=== PATIENT | female | born 1990 | race Two or more races ===

== ENCOUNTER 2018-11-06 22:07 | Emergency (ER) | payer MEDICAID ==
[2018-11-06] MEDS ORDERED: Ketorolac 30 MG/ML SDV IM ONE (22:26)
--- NOTE | 2018-11-06 22:33 | EDM.PDOC ---
ED HPI GENERAL MEDICAL PROBLEM - General Chief Complaint: Back Pain or Injury Stated Complaint: BAD BACK PAIN AND CANT MOVE ARM Time Seen by Provider: 11/06/18 22:20 Source of Information: Reports: Patient, RN, RN Notes Reviewed History Limitations: Reports: No Limitations - History of Present Illness INITIAL COMMENTS - FREE TEXT/NARRATIVE: Pt to ER with c/o left shoulder/neck pain. She states she has been having a headache today, and muscle pain in the upper left back which she has put heat on. She states she has taken Tylenol and that has helped some. She states she was playing ball with her kids [employer] and threw a ball. This is when she felt a pain in the left shoulder and has had decreased range of motion. She states she had anesthesia last week and has had some muscle tenseness since then. Denies chest pains or SOB, numbness or tingling. 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 [No Known Home Meds] 11/06/18 [History] Past Medical History - Past Health History Medical/Surgical History: Denies Medical/Surgical History Social & Family History - Tobacco Use Smoking Status *Q: Never Smoker Second Hand Smoke Exposure: No - Recreational Drug Use Recreational Drug Use: No ED ROS GENERAL - Review of Systems Review Of Systems: ROS reveals no pertinent complaints other than HPI. ED EXAM, UPPER BACK/NECK PAIN - Physical Exam Exam: See Below Exam Limited By: No Limitations General Appearance: Alert, WD/WN, Mild Distress Eye Exam: Bilateral Eye: EOMI, Normal Inspection Ears Exam: Normal External Exam, Hearing Grossly Normal Nose Exam: Normal Inspection Throat/Mouth Exam: Normal Inspection, Normal Voice, No Airway Compromise Head Exam: Atraumatic, Normocephalic Neck Exam: Non-Tender, Full Range of Motion, Normal Alignment, Normal Inspection Nexus Criteria: No: Posterior, Midline Cervical Tenderness, Evidence of Intoxication, Altered Level of Consciousness, Focal Neurological Deficit, Painful Distraction Injuries Cardiovascular/Respiratory: Regular Rate, Rhythm, No M/R/G, Normal Peripheral Pulses, No JVD, Normal Breath Sounds, No Respiratory Distress GI/Abdominal: Normal Bowel Sounds, Soft, Non-Tender (Female) Exam: Deferred Rectal (Female) Exam: Deferred Back Exam: Normal Inspection, Full Range of Motion Extremities: Normal Inspection, Arm Pain (left upper arm, left shoulder pain, up into the neck and left upper back), Limited Range of Motion (left arm) Neurologic: No Motor/Sensory Deficits, Alert, Normal Mood/Affect, Oriented x 3 Psychiatric: Normal Affect, Normal Mood Skin Exam: Normal Color, Warm/Dry Lymphatic: No Adenopathy Course - Vital Signs Last Recorded V/S: Last Vital Signs Temp 97.5 F 11/06/18 22:10 Pulse 78 11/06/18 22:10 Resp 18 11/06/18 22:10 BP 140/90 11/06/18 22:10 Pulse Ox 100 11/06/18 22:10 - Orders/Labs/Meds Meds: Medications Discontinued Medications Generic Name Dose Route Start Last Admin Trade Name Freq PRN Reason Stop Dose Admin Ketorolac Tromethamine 30 mg 11/06/18 22:26 11/06/18 22:33 Toradol IM 11/06/18 22:27 30 mg ONETIME ONE Administration Orphenadrine Citrate 60 mg 11/06/18 22:30 11/06/18 22:32 Norflex IM 60 mg Q12H JAYCE Administration Departure - Departure Time of Disposition: 22:46 Disposition: Home, Self-Care 01 Condition: Fair Clinical Impression: Muscle spasm - Discharge Information *PRESCRIPTION DRUG MONITORING PROGRAM REVIEWED*: No *COPY OF PRESCRIPTION DRUG MONITORING REPORT IN PATIENT VASQUEZ: No Instructions: Muscle Cramps and Spasms, [id number], Muscle Strain, Easy-to- Read, Heat Therapy, [id number] Forms: ED Department Discharge Additional Instructions: Rx: Norflex May use Ibuprofen as directed for pain/headache May use heat as tolerated Follow up with your primary care facility if no improvement
== END 2018-11-06 22:52 | disposition home or self-care (01) ==
LOC: DL.ED 22:07
DX: M62.830 Muscle spasm of back (principal)
CPT/HCPCS: 96372; 99283; J1885; J2360

== ENCOUNTER 2020-02-16 01:17 | Emergency (ER) | payer MEDICAID ==
[2020-02-16 02:52] LABS: ANION GAP 12.1 mEq/L (7-13); CHLORIDE,CL 101 mmol/L (98-107); SODIUM,NA 136 mmol/L (136-145)
--- NOTE | 2020-02-16 03:31 | EDM.PDOC ---
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 Knwn . No OB visit yet. Prior pregnancies in [place] without complications. no urinary symptoms. Pain present now in right upper buttock without radiation. no RLQ pain at this time. Recent constipation but feel now resolved. Right Lower Abdomen Pain Score (Numeric/FACES): 7 - Related Data Allergies Allergy/AdvReac Type Severity Reaction Status Date / Time No Known Allergies Allergy Verified 11/06/18 22:13 Home Meds: Home Meds . [No Known Home Meds] 11/06/18 [History] Past Medical History - Past Health History Medical/Surgical History: Denies Medical/Surgical History Social & Family History - Family History Family Medical History: Noncontributory - Tobacco Use Smoking Status *Q: Never Smoker Second Hand Smoke Exposure: No - Caffeine Use Caffeine Use: Reports: None - Recreational Drug Use Recreational Drug Use: No ED ROS GENERAL - Review of Systems Review Of Systems: Comprehensive ROS is negative, except as noted in HPI. ED EXAM - Physical Exam Exam: See Below Exam Limited By: No Limitations General Appearance: Alert, No Apparent Distress Eye Exam: Bilateral Eye: EOMI Ears: Normal External Exam, Hearing Grossly Normal Nose: Normal Inspection Throat/Mouth: Normal Inspection Head: Atraumatic, Normocephalic Neck: Normal Inspection Respiratory/Chest: No Respiratory Distress, Lungs Clear, Normal Breath Sounds Cardiovascular: Normal Peripheral Pulses, Regular Rate, Rhythm, No Edema GI/Abdominal Exam: Normal Bowel Sounds, Soft, Non-Tender Heart Tones: Present Back Exam: Normal Inspection, Other (mild DI right , discomfort with palpation) Extremities: Normal Range of Motion. No: Pedal Edema Neurological: Alert, Oriented Psychiatric: Normal Affect, Normal Mood Skin Exam: Warm, Dry, Intact, Normal Color Course - Vital Signs Last Recorded V/S: Last Vital Signs Temp 96.9 F 02/16/20 04:38 Pulse 69 02/16/20 04:38 Resp 16 02/16/20 04:38 BP 112/72 02/16/20 04:38 Pulse Ox 99 02/16/20 04:38 - Orders/Labs/Meds Labs: Laboratory Tests 02/16/20 02/16/20 02/16/20 Range/Units 02:25 02:25 02:25 WBC 12.0 H (5.0-10.0) 10^3/uL RBC 5.05 (4.2-5.4) 10^6/uL Hgb 15.7 (12.0-16.0) g/dL Hct 44.3 (37.0-47.0) % MCV 87.7 (80-100) fL MCH 31.1 (27.0-34.0) pg MCHC 35.4 H (33.0-35.0) g/dL Plt Count 280 (150-450) 10^3/uL Neut % (Auto) 73.5 (42.2-75.2) % Lymph % (Auto) 16.2 L (20.5-50.1) % [place] % (Auto) 8.5 H (2-8) % Eos % (Auto) 1.6 (1.0-3.0) % Baso % (Auto) 0.2 (0.0-1.0) % Sodium 136 (136-145) mmol/L Potassium 4.1 (3.5-5.1) mmol/L Chloride 101 (98-107) mmol/L Carbon Dioxide 27 (21-32) mmol/L Anion Gap 12.1 (7-13) mEq/L BUN 7 (7-18) mg/dL Creatinine 0.70 (0.55-1.02) mg/dL Est Cr Clr Drug Dosing 88.68 mL/min Estimated GFR (MDRD) > 60 BUN/Creatinine Ratio 10.0 (No establ ref range) Glucose 86 (74-99) mg/dL Calcium 9.4 (8.5-10.1) mg/dL Total Bilirubin 0.5 (0.2-1.0) mg/dL AST 23 (15-37) U/L ALT 55 (14-59) U/L Alkaline Phosphatase 82 (46-116) U/L Total Protein 8.1 (6.4-8.2) g/dL Albumin 3.6 (3.4-5.0) g/dL Globulin 4.5 Albumin/Globulin Ratio 0.8 HCG, Quant [id number] H (0-6) mIU/mL Departure - Departure Time of Disposition: 05:17 Disposition: Home, Self-Care 01 Condition: Good Clinical Impression: First trimester Low back pain Qualifiers: Chronicity: acute Back pain laterality: right Sciatica presence: with sciatica Sciatica laterality: sciatica of right side Qualified Code(s): M54.41 - Lumbago with sciatica, right side - Discharge Information *PRESCRIPTION DRUG MONITORING PROGRAM REVIEWED*: No *COPY OF PRESCRIPTION DRUG MONITORING REPORT IN PATIENT VASQUEZ: No Instructions: First Trimester of , [id number] Forms: ED Department Discharge Additional Instructions: increase fluids schedule OB visit light activity, advance as tolerated. follow up if fever or increased RLQ pain Sepsis Event Note (ED) - Evaluation Sepsis Screening Result: No Definite Risk
--- NOTE | 2020-02-16 05:26 | US ---
PROCEDURE INFORMATION: Exam: US First Trimester, Transabdominal Exam date and time: 02/16/2020 4:16 AM Age: 29 years old Clinical indication: complicated by abdominal or pelvic pain; Right lower quadrant; First trimester; Gestational age or lmp: 8 wks, 4 days; ; Additional info: Rlq, low back pain TECHNIQUE: Imaging protocol: Real-time transabdominal obstetrical ultrasound of the maternal pelvis and a first trimester , less than 14 weeks 0 days, with image documentation. COMPARISON: No relevant prior studies available. FINDINGS: INTRAUTERINE GESTATION: Single live intrauterine gestation. POLE: Present. YOLK SAC: Present. HEART RATE: 170 beats per minute. CRL: measures 1.94 cm , 8 weeks 4 days. DOT (AUA): 09/23/2020 PLACENTA/AMNIONIC FLUID: Cannot be adequately evaluated due to the early gestational age. UTERUS: Unremarkable. No subchorionic hematoma is noted. RIGHT OVARY: RIGHT ovary measures 2.9 x 2.3 x 2.4 cm. Normal blood flow. LEFT OVARY: LEFT ovary measures 3.3 x 2.1 x 2.3 cm. Normal blood flow. FREE FLUID: No free fluid within the pelvis. IMPRESSION: First trimester intrauterine with estimated gestational age 8 weeks 4 days.
== END 2020-02-16 05:31 | disposition home or self-care (01) ==
LOC: DL.ED 01:17
DX: O99.89 Other specified diseases and conditions complicating pregnancy, childbirth and the puerperium (principal); M54.41 Lumbago with sciatica, right side; Z3A.08 8 weeks gestation of pregnancy
CPT/HCPCS: 36415; 76815; 80053; 84702; 85025; 99284-25

== ENCOUNTER 2020-09-15 11:02 | Inpatient (IN) | payer OTHER, MEDICAID ==
[2020-09-15] MEDS ORDERED: Tranexamic Acid 1,000 MG in Sodium Chloride 0.9% 100 ML IV PRN ×2 (14:53→18:01)
[2020-09-15] MEDS ORDERED: Sodium Chloride 0.9% 10 ML Syringe FLUSH PRN (14:53)
[2020-09-15] MEDS ORDERED: Oxytocin/Normal Saline 30 UNIT/500 ML BAG IV SCH (15:00)
[2020-09-15] MEDS ORDERED: Lactated Ringers 1,000 ML IV SCH ×2 (15:00→18:15)
[2020-09-15] MEDS ORDERED: ceFAZolin 2 GM in Premix Bag 1 BAG IV ONE (15:00)
[2020-09-15] MEDS ORDERED: Citric Acid/Sodium Citrate Solution 30 ML Cup PO ONE (15:00)
[2020-09-15] MEDS: Lactated Ringers 1,000 ML IV SCH ×3 (15:00→19:41)
--- NOTE | 2020-09-15 15:02 | PCM.LDHP ---
L&D History of Present Illness - General Date of Service: 09/15/20 Admit Problem/Dx: Patient Status Order with Admit Dx/Problem 09/15/20 14:53 Patient Status [ADT] Routine Admission Diagnosis/Problem Admission Diagnosis/Problem Term - History of Present Illness Introduction:: Patient is a at 38w6d who presented today for right flank pain and contractions. States the pain started this morning. Pain is described as sharp. She called the clinic and was instructed to leave a urine at the clinic and report to the hospital for an NST. NST has been reassuring and UA contaminated with epithelials and positive for bacteria and WBCs. She has been drinking plenty of water. Denies dysuria, frequency, urgency, hematuria. Her baby has been active. She has a history of prior with her last due to intolerance. She has been doctoring with Dr. Holm in [place] because she desires a . However, she has not been able to get to [place] for her last 2 appointments with him due to car trouble. Her car is still in the shop and she has no way to get to [place]. They have had no success with arranging a ride down there. has been uncomplicated otherwise. She was on aspirin for most of her but uncertain why as she has no history of pre eclampsia. 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: Musculoskeletal History: Reports: None Neurological History: Reports: None Dermatologic History: Reports: None - Past Surgical History Female Surgical History: Reports: Section, D&C Other Female Surgeries/Procedures: Currett of cervix with scope Social & Family History - Family History Family Medical History: No Pertinent Family History Cardiac: Reports: Pacemaker Other Cardiac Family History: maternal grandmother Endocrine/Metabolic: Reports: Diabetes, type II Other Endocrine/Metabolic Family History: Maternal grandmother - Tobacco Use Tobacco Use Status *Q: Never Tobacco User - Caffeine Use Caffeine Use: Reports: None - Living Situation & Occupation Living situation: Reports: Occupation: Employed ( to [employer]. Living in [place], 3 other children at home (2 girls, 1 boy). Working at [employer]. smokes outside.) H&P Review of Systems - Review of Systems: Review Of Systems: See Below General: Denies: Fever, Chills, Weakness HEENT: Denies: Headaches, Vertigo, Visual Changes Pulmonary: Denies: Shortness of Breath Cardiovascular: Denies: Edema, Lightheadedness Gastrointestinal: Denies: Diarrhea, Nausea, Vomiting Genitourinary: Reports: Flank Pain. Denies: Dysuria, Frequency, Burning, Urgency, Hematuria, Discharge Neurological: Denies: Dizziness, Headache, Numbness L&D Exam - Exam Exam: See Below - Vital Signs Vital Signs: Last Vital Signs Temp 98.1 F 09/15/20 11:30 Pulse 87 09/15/20 11:13 Resp 16 09/15/20 11:13 BP 128/78 09/15/20 11:30 Pulse Ox - OB Specific Contraction Duration (sec): 90-120 Contraction Frequency (min): 6-9 - Exam General: Alert, Oriented HEENT: Conjunctiva Clear Neck: Supple, Trachea Midline Lungs: Clear to Auscultation, Normal Respiratory Effort Cardiovascular: Regular Rate, Regular Rhythm, Normal S1, Normal S2 GI/Abdominal Exam: Soft, Non-Tender, No Distention Back Exam: Normal Inspection. No: CVA Tenderness (L), CVA Tenderness (R) Extremities: Non-Tender, No Pedal Edema Skin: Warm, Dry Neurological: Reflexes Equal Bilateral - Problem List (1) History of SNOMED Code(s): 437689802 ICD Code: Z98.891 - HISTORY OF UTERINE SCAR FROM PREVIOUS SURGERY Status: Acute Current Visit: Yes (2) Normal in third trimester SNOMED Code(s): 85407042, 78439369 ICD Code: Z34.93 - ENCNTR FOR SUPRVSN OF NORMAL PREG, UNSP, THIRD TRIMESTER Status: Acute Current Visit: Yes (3) Right flank pain SNOMED Code(s): 146138859 ICD Code: R10.9 - UNSPECIFIED ABDOMINAL PAIN Status: Acute Current Visit: Yes (4) UTI in SNOMED Code(s): 287432342 ICD Code: O23.40 - UNSP INFECTION OF URINARY TRACT IN , UNSP TRIMESTER Status: Acute Current Visit: Yes (5) Positive GBS test SNOMED Code(s): 242651815, 591919365 ICD Code: B95.1 - STREPTOCOCCUS, GROUP B, CAUSING DISEASES CLASSD ELSWHR Status: Acute Current Visit: Yes Problem List Initiated/Reviewed/Updated: Yes Orders Last 24hrs: Active Orders 24 hr Category Date Time Status Patient Status [ADT] Routine ADT 09/15/20 14:53 Ordered Non Stress Test [RC] PER UNIT ROUTINE Care 09/15/20 14:53 Ordered NST [ Non Stress Test] [RC] PER UNIT ROUTINE Care 09/15/20 11:00 Active Notify Provider Vital Signs OB [RC] ASDIRECTED Care 09/15/20 14:53 Ordered Peripheral IV Care [RC] . DIRECTED Care 09/15/20 14:53 Ordered Procedure Site Prep Instruct [RC] ASDIRECTED Care 09/15/20 14:53 Ordered RT Incentive Spirometry [RC] ASDIRECTED Care 09/15/20 14:53 Ordered Vital Signs [RC] PER UNIT ROUTINE Care 09/15/20 14:53 Ordered Nothing Per Oral Diet [DIET] Diet 09/15/20 Breakfast Ordered Nothing Per Oral Diet [DIET] Diet 09/15/20 Dinner Ordered Nothing Per Oral Diet [DIET] Diet 09/15/20 Lunch Ordered CBC WITH AUTO DIFF [HEME] Stat Lab 09/15/20 14:53 Ordered CORONAVIRUS COVID-19 CHANDANA [MOLEC] Stat Lab 09/15/20 14:53 Ordered TYPE AND SCREEN [BBK] Stat Lab 09/15/20 14:53 Ordered Citric Acid/Sodium Citrate [Bicitra Solution] Med 09/15/20 14:53 Once 30 ml PO ONETIME ONE Lactated Ringers @ 125 MLS/HR(1000ml) Med 09/15/20 15:00 Ordered Lactated Ringers [Ringers, Lactated] 1,000 ml IV ASDIRECTED Lactated Ringers [Ringers, Lactated] 1,000 ml Med 09/15/20 15:00 Ordered IV .BOLUS Oxytocin 30 Units in NS @ 2 MUNITS/MIN(500ml) Med 09/15/20 15:00 Ordered Oxytocin/Normal Saline [Pitocin in NS 30 UNIT/500 ML] 30 unit in 500 ml IV TITRATE Sodium Chloride 0.9% [Saline Flush] Med 09/15/20 14:53 Ordered 10 ml FLUSH ASDIRECTED PRN Tranexamic Acid [Cyklokapron] 1,000 mg Med 09/15/20 14:53 Ordered Sodium Chloride 0.9% [Normal Saline] 100 ml IV ONETIME ceFAZolin [Ancef 2 GM/50 ML] 2 gm Med 09/15/20 14:53 Ordered Premix Bag 1 bag IV ONETIME Peripheral IV Insertion Adult [OM.PC] Routine Oth 09/15/20 14:53 Ordered Schedule Procedure [COMM] Per Unit Routine Oth 09/15/20 14:53 Ordered Resuscitation Status Routine Resus Stat 09/15/20 14:53 Ordered Medication Orders Citric Acid/Sodium Citrate (Bicitra Solution) 30 ml PO ONETIME ONE Stop: 09/15/20 14:54 Lactated Ringer's (Ringers, Lactated) 1,000 mls @ 125 mls/hr IV ASDIRECTED JAYCE Lactated Ringer's (Ringers, Lactated) 1,000 mls @ 500 mls/hr IV .BOLUS JAYCE Tranexamic Acid 1,000 mg/ (Sodium Chloride) 110 mls @ 660 mls/hr IV ONETIME PRN PRN Reason: Bleeding Oxytocin/Sodium Chloride (Pitocin In Ns 30 Unit/500 Ml) 30 unit in 500 mls @ 2 mls/hr IV TITRATE JAYCE; Protocol Cefazolin Sodium/Dextrose 2 gm (/ Premix) 50 mls @ 100 mls/hr IV ONETIME ONE Stop: 09/15/20 15:22 Sodium Chloride (Saline Flush) 10 ml FLUSH ASDIRECTED PRN PRN Reason: Keep Vein Open Assessment/Plan Comment:: Patient monitored for several hours. Her contractions have increased in frequency and intensity. Her cervix has changed from 1/25/-3 to 2.5 and thin/stretchy. She was advised that we could still get her to [place] to attempt vaginal delivery but patient would have no way of getting back to town. They have no vehicle to drive down to [place] and no one willing to drive for them. She would like to proceed with c- section. Will admit to L & D. Dr. Arguello was consulted for . Orders placed and will go forward with as soon as able. Nell Elise MD
[2020-09-15] MEDS ORDERED: Oxytocin/Normal Saline 60 UNIT/1,000 ML BAG ONE (15:11)
[2020-09-15] MEDS ORDERED: Carboprost Tromethamine 250 MCG/1 ML Amp IM PRN (18:01)
[2020-09-15] MEDS ORDERED: Acetaminophen 325 MG Tab PO PRN (18:01)
[2020-09-15] MEDS ORDERED: Misoprostol 400 MCG (4 X 100 MCG TAB) RECTAL PRN (18:01)
[2020-09-15] MEDS ORDERED: Naloxone 2 MG/2 ML Syringe IVPUSH PRN (18:01)
[2020-09-15] MEDS ORDERED: Ondansetron 4 MG/2 ML SDV IVPUSH PRN (18:01)
[2020-09-15] MEDS ORDERED: diphenhydrAMINE 50 MG/ML SDV IVPUSH PRN (18:01)
[2020-09-15] MEDS ORDERED: Methylergonovine 0.2 MG/1 ML Amp IM PRN (18:01)
[2020-09-15] MEDS ORDERED: Acetaminophen/oxyCODONE 325-5 MG Tab PO PRN (18:01)
[2020-09-15] MEDS ORDERED: ePHEDrine 50 MG/ML SDV IVPUSH PRN (18:01)
[2020-09-15] MEDS ORDERED: Promethazine 25 MG/ML SDV IM ONE (20:48)
--- NOTE | 2020-09-15 20:52 | OR ---
DATE: 09/15/2020 PREPROCEDURE DIAGNOSES: 1. 38-6/7th weeks' intrauterine . 2. 4, para 3-0-0-3. 3. History of section x1 because of distress. 4. Patient requesting repeat low transverse section due to active labor and inability to travel to [place] and get home from [place] after her planned vaginal after . POSTOPERATIVE DIAGNOSES: 1. 38-6/7th weeks' intrauterine . 2. 4, para 3-0-0-3. 3. History of section x1 because of distress. 4. Patient requesting repeat low transverse section due to active labor and inability to travel to [place] and get home from [place] for her planned vaginal after . 5. Extension of the hysterotomy site to the broad ligament on the right plus delivery of viable female infant. scores of 8 and 9. STEREOPTIC PROJECTION TOPOGRAPHER: Nell Grover MD. SECOND AMALGAMATOR: Francia Rich MS-III ANESTHESIA: Spinal. CONSENT: Discussed with the patient indications, risks, benefits, and alternatives of repeat low transverse section under spinal anesthesia, potential for injury to internal organs and adjacent structures including but not limited to large blood vessels, nerves, veins, bladder, fallopian tubes, ovaries, uterus, and intestines; potential injury to the baby; potential for other complications requiring Intensive Care nursery transfer; complications for mother that would require transfer to a higher level of care; and all of her questions were answered. She signed appropriate consent forms and those can be found in the chart. BRIEF HISTORY: This is a 30-year-old female with the above-listed history, who presented to the hospital earlier today with right-sided back pain and not much in the way of urinary symptoms. However, concern for a urinary tract infection was investigated and found to be negative. She went on from a closed cervix to 2.5 cm dilated with regular contractions, increasing in force and frequency. Her original delivery plan was to go to [place] for a trial of labor after , especially with a history of 2 prior successful vaginal deliveries. She was advised that this could be arranged by ambulance. However, she did not want to go because there was concern of not being able to get her down or them having difficulties getting back from [place] after delivery upon discharge due to having some trouble with her car. monitoring strip had been category 1, and the patient was doing well. DETAILS OF PROCEDURE: The patient was brought to the operating suite and spinal anesthesia was obtained. She was then laid in dorsal supine position with leftward tilt and Mariee indwelling catheter was placed. The abdomen was prepped and site of prior skin scar was marked, and sterile drapes applied in the usual fashion. A skin incision was made at 1655 with scalpel and carried down through the subcutaneous tissue into the fascia using cautery, which was incised in the midline and carried out bilaterally with cautery. The superior fascial edge was grasped with Kochers, tented up, and rectus muscles dissected off bluntly. The inferior fascial edge then grasped with Kochers, tented up, and dissected off bluntly as well. The peritoneal cavity was elevated and gently incised with scalpel, and then further peritoneal opening created using blunt finger dissection. The Hong retractor was then placed and a bladder flap created with Metzenbaum and smooth pickups. The hysterotomy incision was made with scalpel in the midline and only about 3 mm in diameter, extended bilaterally using Chilel method, trying to direct upward at the lateral edges and appeared appropriate. The baby was very low in the pelvis and had to be brought up out of the pelvic bowl to the hysterotomy site for delivery. Along with elevation of the head and fundal pressure, the was delivered at 1702, strong vigorous cry. The baby was dried, stimulated, and bulb suction performed. Three-vessel umbilical cord was doubly clamped and cut; and baby taken to the warmer for further evaluation. Uterine site was showing some large bleeders on the right side, so those were clamped with Penningtons. Placenta was then delivered by gentle cord traction and concomitant uterine massage, inspected, and intact. Uterus was cleared of all clots and debris with 2 dry lap sponges, and all trailing membranes removed with dry lap sponge and ring forceps. Hysterotomy site was then closed with 0 Vicryl in a running lock fashion. When I did get to the right side, I did notice that it went over into the broad ligament, and this was closed all the way to the apex, palpating posteriorly to make sure we did not suture too deeply. Hysterotomy site was inspected and was hemostatic. The Hong retractor was removed and uterus exteriorized. Posterior aspect was normal without any trauma. The uterus was placed back in the abdominal cavity. Rectus muscles were reapproximated in the midline with 0 Vicryl, and then fascial layer brought together with 0 looped PDS in the usual running fashion. Subcutaneous tissue was then irrigated of all clots and debris, and the skin closed with go and time was 1735, and there were no complications. After the removal of the Hong O retractor, hysterotomy site was reinspected and remained hemostatic. ESTIMATED BLOOD LOSS: 800 mL. URINE OUTPUT: 250 mL, clear. ESTIMATED BLOOD LOSS: 1600 mL of lactated Ringer's. FLUIDS: 200 mL of Pitocin. COMPLICATIONS: None. DISPOSITION: Baby taken to the nursery. Mother will be taken to the PACU and will be reunited soon. [facility] /[id number] MTDD
[2020-09-15] MEDS: Ketorolac 30 MG/ML SDV IVPUSH SCH (23:39)
[2020-09-16] MEDS: Ketorolac 30 MG/ML SDV IVPUSH SCH ×2 (05:31→11:13)
[2020-09-16] MEDS: Simethicone 80 MG Tab.Chew PO SCH ×5 (05:35→21:06)
--- NOTE | 2020-09-16 06:47 | PCM.PN ---
<Francia Rich D - Last Filed: 09/16/20 07:04> - General Info Date of Service: 09/16/20 Admission Dx/Problem (Free Text): Labor and delivery, status post Caesarean section Subjective Update: Denise is a 30-year-old female status post-Caesarean section yesterday. This morning she is doing well overall. Some fatigue and abdominal soreness, as expected. Sleeping well. Pain is well controlled. Tolerating general diet. IVF NS 125 mL/hr. Denies incisional pain, chest pain, shortness of breath, nausea, vomiting, weakness, any new symptoms. Mariee in. Last bowel movement yesterday morning. Has not ambulated. SCD's in place. Is baby. Functional Status: Reports: Pain Controlled, Tolerating Diet. Denies: Ambulating, New Symptoms - Review of Systems General: Reports: Fatigue. Denies: Fever, Weakness, Chills HEENT: Denies: Headaches, Visual Changes Pulmonary: Denies: Shortness of Breath, Cough Cardiovascular: Denies: Chest Pain, Palpitations, Lightheadedness Gastrointestinal: Denies: Abdominal Pain, Constipation, Decreased Appetite, Diarrhea, Nausea, Vomiting Genitourinary: Denies: Pain Musculoskeletal: Denies: Joint Pain, Joint Swelling Skin: Denies: Mottled, Pallor, Pruritis, Rash Neurological: Denies: Confusion, Dizziness, Headache, Numbness, Tingling - Patient Data Vitals - Most Recent: Last Vital Signs Temp 96.8 F L 09/16/20 04:00 Pulse 67 09/16/20 04:00 Resp 16 09/16/20 04:00 BP 101/52 L 09/16/20 04:00 Pulse Ox 99 09/15/20 19:00 Weight - Most Recent: 174 lb I&O - Last 24 Hours: Intake & Output 09/15/20 09/15/20 09/16/20 14:59 22:59 06:59 Intake Total 1400 480 908 Output Total 724 450 Balance 1400 -413 458 Lab Results Last 24 Hours: Laboratory Results - last 24 hr 09/15/20 09/15/20 09/15/20 Range/Units 15:11 15:11 15:18 WBC 8.4 (5.0-10.0) 10^3/uL RBC 4.96 (4.2-5.4) 10^6/uL Hgb 14.8 (12.0-16.0) g/dL Hct 43.5 (37.0-47.0) % MCV 87.7 (80-100) fL MCH 29.8 (27.0-34.0) pg MCHC 34.0 (33.0-35.0) g/dL Plt Count 196 D (150-450) 10^3/uL Neut % (Auto) 73.7 (42.2-75.2) % Lymph % (Auto) 16.1 L (20.5-50.1) % Hughes % (Auto) 9.0 H (2-8) % Eos % (Auto) 1.1 (1.0-3.0) % Baso % (Auto) 0.1 (0.0-1.0) % SARS-CoV-2 RNA (CHANDANA) Negative (NEGATIVE) Blood Type A POSITIVE Gel Antibody Screen Negative 09/16/20 Range/Units 06:03 WBC 11.8 H (5.0-10.0) 10^3/uL RBC 3.81 L (4.2-5.4) 10^6/uL Hgb 11.5 L D (12.0-16.0) g/dL Hct 33.5 L (37.0-47.0) % MCV 87.9 (80-100) fL MCH 30.2 (27.0-34.0) pg MCHC 34.3 (33.0-35.0) g/dL Plt Count 215 (150-450) 10^3/uL Neut % (Auto) (42.2-75.2) % Lymph % (Auto) (20.5-50.1) % Hughes % (Auto) (2-8) % Eos % (Auto) (1.0-3.0) % Baso % (Auto) (0.0-1.0) % SARS-CoV-2 RNA (CHANDANA) (NEGATIVE) Blood Type Gel Antibody Screen Med Orders - Current: Current Medications Acetaminophen (Tylenol) 650 mg PO Q6H PRN PRN Reason: Mild Pain (1-3) or Fever Carboprost Tromethamine (Hemabate Ds) 250 mcg IM ONETIME PRN PRN Reason: Bleeding Diphenhydramine HCl (Benadryl) 25 mg IVPUSH Q6H PRN PRN Reason: Itching or Nausea Docusate Sodium (Colace) 100 mg PO Q12H PRN PRN Reason: Constipation Ephedrine Sulfate (Ephedrine Sulfate) 5 mg IVPUSH SEECOMMENT PRN PRN Reason: Other Oxytocin/Sodium Chloride (Pitocin In Ns 30 Unit/500 Ml) 30 unit in 500 mls @ 2 mls/hr IV TITRATE [facility]; Protocol Last Titration: 09/15/20 19:40 Dose: 0 munits/min, 0 mls/hr Documented by: Lactated Ringer's (Ringers, Lactated) 1,000 mls @ 125 mls/hr IV ASDIRECTED [facility] Last Admin: 09/16/20 04:05 Dose: 125 mls/hr Documented by: Tranexamic Acid 1,000 mg/ (Sodium Chloride) 110 mls @ 660 mls/hr IV ONETIME PRN PRN Reason: Bleeding Ibuprofen (Motrin) 800 mg PO Q8H PRN PRN Reason: Cramping Ketorolac Tromethamine (Toradol) 15 mg IVPUSH Q6H [facility] Stop: 09/16/20 11:01 Last Admin: 09/16/20 05:31 Dose: 15 mg Documented by: Methylergonovine Maleate (Methergine) 0.2 mg IM ONETIME PRN PRN Reason: Excessive Vaginal Bleeding Misoprostol (Cytotec) 800 mcg RECTAL ASDIRECTED PRN PRN Reason: Excessive bleeding Naloxone HCl (Narcan) 0.1 mg IVPUSH SEECOMMENT PRN PRN Reason: Respiratory Depression Ondansetron HCl (Zofran) 4 mg IVPUSH Q4H PRN PRN Reason: Nausea/Vomiting Last Admin: 09/15/20 20:23 Dose: 4 mg Documented by: Oxycodone/Acetaminophen (Percocet 325-5 Mg) 1 tab PO Q4H PRN PRN Reason: Pain (moderate 4-6) Oxycodone/Acetaminophen (Percocet 325-5 Mg) 2 tab PO Q4H PRN PRN Reason: Pain (moderate 4-6) Prenat Multivit/[place]/Iron/Folic Ac ( Plus Iron) 1 each PO DAILY [facility] Simethicone (Simethicone) 160 mg PO QID [facility] Last Admin: 09/16/20 05:35 Dose: Not Given Documented by: Discontinued Medications Citric Acid/Sodium Citrate (Bicitra Solution) 30 ml PO ONETIME ONE Stop: 09/15/20 15:01 Last Admin: 09/15/20 16:07 Dose: 30 ml Documented by: Lactated Ringer's (Ringers, Lactated) 1,000 mls @ 125 mls/hr IV ASDIRECTED [facility] Last Admin: 09/15/20 19:41 Dose: 125 mls/hr Documented by: Lactated Ringer's (Ringers, Lactated) 1,000 mls @ 500 mls/hr IV .BOLUS [facility] Last Admin: 09/15/20 16:00 Dose: 999 mls/hr Documented by: Tranexamic Acid 1,000 mg/ (Sodium Chloride) 110 mls @ 660 mls/hr IV ONETIME PRN PRN Reason: Bleeding Cefazolin Sodium/Dextrose 2 gm (/ Premix) 50 mls @ 100 mls/hr IV ONETIME ONE Stop: 09/15/20 15:29 Last Admin: 09/15/20 16:34 Dose: 100 mls/hr Documented by: Cefazolin Sodium/Dextrose (Ancef 2 Gm/50 Ml) Confirm Administered Dose 50 mls @ as directed .ROUTE .STK-MED ONE Stop: 09/15/20 15:12 Oxytocin/Sodium Chloride (Pitocin In Ns 30 Unit/500 Ml) Confirm Administered Dose 60 unit in 1,000 mls @ as directed .ROUTE .STK-MED ONE Stop: 09/15/20 15:12 Promethazine HCl (Phenergan) 12.5 mg IM ONETIME ONE Stop: 09/15/20 20:49 Last Admin: 09/15/20 21:09 Dose: 12.5 mg Documented by: Sodium Chloride (Saline Flush) 10 ml FLUSH ASDIRECTED PRN PRN Reason: Keep Vein Open - Exam Quality Assessment: Urine Catheter, DVT Prophylaxis General: Alert, Oriented, No Acute Distress HEENT: EOMI, Mucous Membr. Moist/[place]. No: Scleral Icterus Neck: Supple, Trachea Midline Lungs: Clear to Auscultation, Normal Respiratory Effort Cardiovascular: Regular Rate, Regular Rhythm GI/Abdominal Exam: Normal Bowel Sounds, Soft, Non-Tender, No Organomegaly, No Mass (Female) Exam: Deferred Extremities: Normal Inspection, Normal Range of Motion, Non-Tender, No Pedal Edema, Normal Capillary Refill. No: Joint Swelling Skin: Warm, Dry, Intact Wound/Incisions: Dressing Dry and Intact, No Drainage. No: Erythema Neurological: No New Focal Deficit, Normal Speech, Normal Tone Psy/Mental Status: Alert, Normal Affect, Normal Mood Sepsis Event Note - Evaluation Sepsis Screening Result: No Definite Risk - Focused Exam Vital Signs: Vital Signs Temp Pulse Pulse Resp BP Pulse Ox Pulse Ox 09/16/20 04:00 96.8 F L 67 16 101/52 L 09/15/20 23:40 96.7 F L 68 16 121/64 09/15/20 20:15 65 16 124/67 09/15/20 20:00 62 16 129/71 09/15/20 19:30 63 16 126/69 09/15/20 19:15 96.8 F L 65 16 122/72 09/15/20 19:00 70 16 120/77 99 09/15/20 18:45 67 16 122/71 98 - Problem List Review Problem List Initiated/Reviewed/Updated: Yes - Assessment Assessment:: Patient is a 30-year-old now who is doing well. Progressing as expected. - Plan Plan:: Continue general diet, as tolerated. Will consider removing Mariee, d/c IVF today to encourage ambulation. Continue breast feeding, senior product consultant, as needed. Will complete wound check, dressing change. <Nell Elise - Last Filed: 09/16/20 08:12> - Patient Data Vitals - Most Recent: Last Vital Signs Temp 96.8 F L 09/16/20 04:00 Pulse 67 09/16/20 04:00 Resp 16 09/16/20 04:00 BP 101/52 L 09/16/20 04:00 Pulse Ox 99 09/15/20 19:00 I&O - Last 24 Hours: Intake & Output 09/15/20 09/16/20 09/16/20 22:59 06:59 14:59 Intake Total 480 908 Output Total 725 450 Balance -245 458 Lab Results Last 24 Hours: Laboratory Results - last 24 hr 09/15/20 09/15/20 09/15/20 Range/Units 15:11 15:11 15:18 WBC 8.4 (5.0-10.0) 10^3/uL RBC 4.96 (4.2-5.4) 10^6/uL Hgb 14.8 (12.0-16.0) g/dL Hct 43.5 (37.0-47.0) % MCV 87.7 (80-100) fL MCH 29.8 (27.0-34.0) pg MCHC 34.0 (33.0-35.0) g/dL Plt Count 196 D (150-450) 10^3/uL Neut % (Auto) 73.7 (42.2-75.2) % Lymph % (Auto) 16.1 L (20.5-50.1) % Hughes % (Auto) 9.0 H (2-8) % Eos % (Auto) 1.1 (1.0-3.0) % Baso % (Auto) 0.1 (0.0-1.0) % SARS-CoV-2 RNA (CHANDANA) Negative (NEGATIVE) Blood Type A POSITIVE Gel Antibody Screen Negative 09/16/20 Range/Units 06:03 WBC 11.8 H (5.0-10.0) 10^3/uL RBC 3.81 L (4.2-5.4) 10^6/uL Hgb 11.5 L D (12.0-16.0) g/dL Hct 33.5 L (37.0-47.0) % MCV 87.9 (80-100) fL MCH 30.2 (27.0-34.0) pg MCHC 34.3 (33.0-35.0) g/dL Plt Count 215 (150-450) 10^3/uL Neut % (Auto) (42.2-75.2) % Lymph % (Auto) (20.5-50.1) % Hughes % (Auto) (2-8) % Eos % (Auto) (1.0-3.0) % Baso % (Auto) (0.0-1.0) % SARS-CoV-2 RNA (CHANDANA) (NEGATIVE) Blood Type Gel Antibody Screen Med Orders - Current: Current Medications Acetaminophen (Tylenol) 650 mg PO Q6H PRN PRN Reason: Mild Pain (1-3) or Fever Carboprost Tromethamine (Hemabate Ds) 250 mcg IM ONETIME PRN PRN Reason: Bleeding Diphenhydramine HCl (Benadryl) 25 mg IVPUSH Q6H PRN PRN Reason: Itching or Nausea Docusate Sodium (Colace) 100 mg PO Q12H PRN PRN Reason: Constipation Ephedrine Sulfate (Ephedrine Sulfate) 5 mg IVPUSH SEECOMMENT PRN PRN Reason: Other Ferrous Sulfate (Ferrous Sulfate) 325 mg PO WITHBREAKFAST [facility] Oxytocin/Sodium Chloride (Pitocin In Ns 30 Unit/500 Ml) 30 unit in 500 mls @ 2 mls/hr IV TITRATE [facility]; Protocol Last Titration: 09/15/20 19:40 Dose: 0 munits/min, 0 mls/hr Documented by: Lactated Ringer's (Ringers, Lactated) 1,000 mls @ 125 mls/hr IV ASDIRECTED [facility] Last Admin: 09/16/20 04:05 Dose: 125 mls/hr Documented by: Tranexamic Acid 1,000 mg/ (Sodium Chloride) 110 mls @ 660 mls/hr IV ONETIME PRN PRN Reason: Bleeding Ibuprofen (Motrin) 800 mg PO Q8H PRN PRN Reason: Cramping Ketorolac Tromethamine (Toradol) 15 mg IVPUSH Q6H [facility] Stop: 09/16/20 11:01 Last Admin: 09/16/20 05:31 Dose: 15 mg Documented by: Methylergonovine Maleate (Methergine) 0.2 mg IM ONETIME PRN PRN Reason: Excessive Vaginal Bleeding Misoprostol (Cytotec) 800 mcg RECTAL ASDIRECTED PRN PRN Reason: Excessive bleeding Naloxone HCl (Narcan) 0.1 mg IVPUSH SEECOMMENT PRN PRN Reason: Respiratory Depression Ondansetron HCl (Zofran) 4 mg IVPUSH Q4H PRN PRN Reason: Nausea/Vomiting Last Admin: 09/15/20 20:23 Dose: 4 mg Documented by: Oxycodone/Acetaminophen (Percocet 325-5 Mg) 1 tab PO Q4H PRN PRN Reason: Pain (moderate 4-6) Oxycodone/Acetaminophen (Percocet 325-5 Mg) 2 tab PO Q4H PRN PRN Reason: Pain (moderate 4-6) Prenat Multivit/[place]/Iron/Folic Ac ( Plus Iron) 1 each PO DAILY [facility] Simethicone (Simethicone) 160 mg PO QID [facility] Last Admin: 09/16/20 05:35 Dose: Not Given Documented by: Discontinued Medications Citric Acid/Sodium Citrate (Bicitra Solution) 30 ml PO ONETIME ONE Stop: 09/15/20 15:01 Last Admin: 09/15/20 16:07 Dose: 30 ml Documented by: Lactated Ringer's (Ringers, Lactated) 1,000 mls @ 125 mls/hr IV ASDIRECTED [facility] Last Admin: 09/15/20 19:41 Dose: 125 mls/hr Documented by: Lactated Ringer's (Ringers, Lactated) 1,000 mls @ 500 mls/hr IV .BOLUS [facility] Last Admin: 09/15/20 16:00 Dose: 999 mls/hr Documented by: Tranexamic Acid 1,000 mg/ (Sodium Chloride) 110 mls @ 660 mls/hr IV ONETIME PRN PRN Reason: Bleeding Cefazolin Sodium/Dextrose 2 gm (/ Premix) 50 mls @ 100 mls/hr IV ONETIME ONE Stop: 09/15/20 15:29 Last Admin: 09/15/20 16:34 Dose: 100 mls/hr Documented by: Cefazolin Sodium/Dextrose (Ancef 2 Gm/50 Ml) Confirm Administered Dose 50 mls @ as directed .ROUTE .STK-MED ONE Stop: 09/15/20 15:12 Oxytocin/Sodium Chloride (Pitocin In Ns 30 Unit/500 Ml) Confirm Administered Dose 60 unit in 1,000 mls @ as directed .ROUTE .STK-MED ONE Stop: 09/15/20 15:12 Promethazine HCl (Phenergan) 12.5 mg IM ONETIME ONE Stop: 09/15/20 20:49 Last Admin: 09/15/20 21:09 Dose: 12.5 mg Documented by: Sodium Chloride (Saline Flush) 10 ml FLUSH ASDIRECTED PRN PRN Reason: Keep Vein Open Sepsis Event Note - Focused Exam Vital Signs: Vital Signs Temp Pulse Resp BP 09/16/20 04:00 96.8 F L 67 16 101/52 L 09/15/20 23:40 96.7 F L 68 16 121/64 09/15/20 20:15 65 16 124/67 - Problem List & Annotations (1) History of SNOMED Code(s): 422514088 Code(s): Z98.891 - HISTORY OF UTERINE SCAR FROM PREVIOUS SURGERY Status: Acute Current Visit: Yes (2) Normal in third trimester SNOMED Code(s): 47079850, 23266633 Code(s): Z34.93 - ENCNTR FOR SUPRVSN OF NORMAL PREG, UNSP, THIRD TRIMESTER Status: Acute Current Visit: Yes (3) Right flank pain SNOMED Code(s): 769740578 Code(s): R10.9 - UNSPECIFIED ABDOMINAL PAIN Status: Acute Current Visit: Yes (4) UTI in SNOMED Code(s): 084015624 Code(s): O23.40 - UNSP INFECTION OF URINARY TRACT IN , UNSP TRIMESTER Status: Acute Current Visit: Yes (5) Positive GBS test SNOMED Code(s): 330987319, 820587229 Code(s): B95.1 - STREPTOCOCCUS, GROUP B, CAUSING DISEASES CLASSD [id number] Status: Acute Current Visit: Yes - My Orders Last 24 Hours: My Active Orders 09/15/20 15:00 Oxytocin/Normal Saline [Pitocin in NS 30 UNIT/500 ML] 30 unit in 500 ml IV TITRATE 09/16/20 09:00 Ferrous Sulfate 325 mg PO WITHBREAKFAST - Plan Plan:: She is doing well. Post op hgb appropriate, consistent with acute blood loss anemia. Will start iron supplements. Anticipate discharge on POD3. Patient was personally seen and examined with the medical student. I reviewed the noted scribed on my behalf and necessary changes have been made to reflect my opinion on the history, exam, assessment, and plan. Nell Elise MD
[2020-09-16] MEDS: Docusate Sodium 100 MG Cap PO PRN ×2 (09:05→21:06)
[2020-09-16] MEDS: Ferrous Sulfate 325 MG Tab PO SCH (09:05)
[2020-09-16] MEDS: Prenatal Multivitamin with Calcium/Folic Acid/Iron Tab PO SCH (09:05)
[2020-09-16] MEDS: Acetaminophen/oxyCODONE 325-5 MG Tab PO PRN ×3 (13:41→23:41)
[2020-09-16] MEDS ORDERED: Oxytocin/Normal Saline 30 UNIT/500 ML BAG IV ONE (16:32)
[2020-09-16] MEDS: Ibuprofen 800 MG Tab PO PRN (21:06)
[2020-09-17] MEDS: Acetaminophen/oxyCODONE 325-5 MG Tab PO PRN (03:41)
[2020-09-17] MEDS: Simethicone 80 MG Tab.Chew PO SCH ×2 (09:02→12:11)
[2020-09-17] MEDS: Ferrous Sulfate 325 MG Tab PO SCH (09:02)
[2020-09-17] MEDS: Prenatal Multivitamin with Calcium/Folic Acid/Iron Tab PO SCH (09:02)
[2020-09-17] MEDS: Ibuprofen 800 MG Tab PO PRN (09:02)
[2020-09-17] MEDS: Docusate Sodium 100 MG Cap PO PRN (09:03)
--- NOTE | 2020-09-17 12:02 | PCM.PNPP ---
- General Info Date of Service: 09/17/20 Subjective Update: Patient is post op day 2 from her repeat . She reports her lochia is mild. She is . She has pain controlled with narcotics and OTC medications. She has been advancing her diet and has good PO intake. Denies nausea or vomiting. She has been urinating spontaneously. She has passed flatus. She has not had a bowel movement. She has been ambulating. She has no complaints. No acute events overnight. She would like discharge home today if possible. Functional Status: Reports: Pain Controlled - Review of Systems General: Denies: Fever, Weakness HEENT: Denies: Headaches, Visual Changes Pulmonary: Denies: Shortness of Breath Cardiovascular: Denies: Chest Pain, Edema, Lightheadedness Gastrointestinal: Denies: Abdominal Pain, Nausea, Vomiting Neurological: Denies: Dizziness, Headache, Weakness - Patient Data Vital Signs - Most Recent: Last Vital Signs Temp 98.3 F 09/17/20 08:00 Pulse 73 09/17/20 08:00 Resp 20 09/17/20 08:00 BP 122/66 09/17/20 08:00 Pulse Ox 100 09/17/20 08:00 Weight - Most Recent: 174 lb Med Orders - Current: Current Medications Acetaminophen (Tylenol) 650 mg PO Q6H PRN PRN Reason: Mild Pain (1-3) or Fever Carboprost Tromethamine (Hemabate Ds) 250 mcg IM ONETIME PRN PRN Reason: Bleeding Diphenhydramine HCl (Benadryl) 25 mg IVPUSH Q6H PRN PRN Reason: Itching or Nausea Docusate Sodium (Colace) 100 mg PO Q12H PRN PRN Reason: Constipation Last Admin: 09/17/20 09:03 Dose: 100 mg Documented by: Ephedrine Sulfate (Ephedrine Sulfate) 5 mg IVPUSH SEECOMMENT PRN PRN Reason: Other Ferrous Sulfate (Ferrous Sulfate) 325 mg PO WITHBREAKFAST [facility] Last Admin: 09/17/20 09:02 Dose: 325 mg Documented by: Oxytocin/Sodium Chloride (Pitocin In Ns 30 Unit/500 Ml) 30 unit in 500 mls @ 2 mls/hr IV TITRATE [facility]; Protocol Last Titration: 09/15/20 19:40 Dose: 0 munits/min, 0 mls/hr Documented by: Lactated Ringer's (Ringers, Lactated) 1,000 mls @ 125 mls/hr IV ASDIRECTED [facility] Last Admin: 09/16/20 04:05 Dose: 125 mls/hr Documented by: Tranexamic Acid 1,000 mg/ (Sodium Chloride) 110 mls @ 660 mls/hr IV ONETIME PRN PRN Reason: Bleeding Ibuprofen (Motrin) 800 mg PO Q8H PRN PRN Reason: Cramping Last Admin: 09/17/20 09:02 Dose: 800 mg Documented by: Methylergonovine Maleate (Methergine) 0.2 mg IM ONETIME PRN PRN Reason: Excessive Vaginal Bleeding Misoprostol (Cytotec) 800 mcg RECTAL ASDIRECTED PRN PRN Reason: Excessive bleeding Naloxone HCl (Narcan) 0.1 mg IVPUSH SEECOMMENT PRN PRN Reason: Respiratory Depression Ondansetron HCl (Zofran) 4 mg IVPUSH Q4H PRN PRN Reason: Nausea/Vomiting Last Admin: 09/15/20 20:23 Dose: 4 mg Documented by: Oxycodone/Acetaminophen (Percocet 325-5 Mg) 1 tab PO Q4H PRN PRN Reason: Pain (moderate 4-6) Oxycodone/Acetaminophen (Percocet 325-5 Mg) 2 tab PO Q4H PRN PRN Reason: Pain (moderate 4-6) Last Admin: 09/17/20 03:41 Dose: 2 tab Documented by: Prenat Multivit/[place]/Iron/Folic Ac ( Plus Iron) 1 each PO DAILY [facility] Last Admin: 09/17/20 09:02 Dose: 1 each Documented by: Simethicone (Simethicone) 160 mg PO QID [facility] Last Admin: 09/17/20 09:02 Dose: 160 mg Documented by: Discontinued Medications Citric Acid/Sodium Citrate (Bicitra Solution) 30 ml PO ONETIME ONE Stop: 09/15/20 15:01 Last Admin: 09/15/20 16:07 Dose: 30 ml Documented by: Lactated Ringer's (Ringers, Lactated) 1,000 mls @ 125 mls/hr IV ASDIRECTED [facility] Last Admin: 09/15/20 19:41 Dose: 125 mls/hr Documented by: Lactated Ringer's (Ringers, Lactated) 1,000 mls @ 500 mls/hr IV .BOLUS [facility] Last Admin: 09/15/20 16:00 Dose: 999 mls/hr Documented by: Tranexamic Acid 1,000 mg/ (Sodium Chloride) 110 mls @ 660 mls/hr IV ONETIME PRN PRN Reason: Bleeding Cefazolin Sodium/Dextrose 2 gm (/ Premix) 50 mls @ 100 mls/hr IV ONETIME ONE Stop: 09/15/20 15:29 Last Admin: 09/15/20 16:34 Dose: 100 mls/hr Documented by: Cefazolin Sodium/Dextrose (Ancef 2 Gm/50 Ml) Confirm Administered Dose 50 mls @ as directed .ROUTE .STK-MED ONE Stop: 09/15/20 15:12 Oxytocin/Sodium Chloride (Pitocin In Ns 30 Unit/500 Ml) Confirm Administered Dose 60 unit in 1,000 mls @ as directed .ROUTE .STK-MED ONE Stop: 09/15/20 15:12 Oxytocin/Sodium Chloride (Pitocin In Ns 30 Unit/500 Ml) 30 unit in 500 mls @ as directed IV .STK-MED ONE Stop: 09/16/20 16:33 Ketorolac Tromethamine (Toradol) 15 mg IVPUSH Q6H [facility] Stop: 09/16/20 11:01 Last Admin: 09/16/20 11:13 Dose: 15 mg Documented by: Promethazine HCl (Phenergan) 12.5 mg IM ONETIME ONE Stop: 09/15/20 20:49 Last Admin: 09/15/20 21:09 Dose: 12.5 mg Documented by: Sodium Chloride (Saline Flush) 10 ml FLUSH ASDIRECTED PRN PRN Reason: Keep Vein Open - Infant Interaction Support Person: - Recovery Exam Fundal Tone: Firm Fundal Level: 1 Fingerbreadths Below Umbilicus Fundal Placement: Midline Lochia Amount: Small Lochia Color: Rubra/Red Perineum Description: Intact, Minimal Bruising/Swelling Episiotomy/Laceration: None Bladder Status: Voiding Urinary Elimination: Indwelling Catheter - Exam General: Alert, Oriented HEENT: Mucous Membr. Moist/[place] Neck: Supple, Trachea Midline Lungs: Clear to Auscultation, Normal Respiratory Effort Cardiovascular: Regular Rate, Regular Rhythm GI/Abdominal Exam: Normal Bowel Sounds, Soft, No Distention Extremities: Normal Inspection, Non-Tender, No Pedal Edema Skin: Warm, Dry, Intact Wound/Incisions: Healing Well, Dressing Dry and Intact, No Drainage (Radha in good position.) Neurological: No New Focal Deficit - Problem List & Annotations (1) History of SNOMED Code(s): 295581166 Code(s): Z98.891 - HISTORY OF UTERINE SCAR FROM PREVIOUS SURGERY Status: Acute Current Visit: Yes (2) Normal in third trimester SNOMED Code(s): 71460789, 87592739 Code(s): Z34.93 - ENCNTR FOR SUPRVSN OF NORMAL PREG, UNSP, THIRD TRIMESTER Status: Acute Current Visit: Yes (3) Right flank pain SNOMED Code(s): 593057010 Code(s): R10.9 - UNSPECIFIED ABDOMINAL PAIN Status: Acute Current Visit: Yes (4) UTI in SNOMED Code(s): 050608085 Code(s): O23.40 - UNSP INFECTION OF URINARY TRACT IN , UNSP TRIMESTER Status: Acute Current Visit: Yes (5) Positive GBS test SNOMED Code(s): 019157508, 217607608 Code(s): B95.1 - STREPTOCOCCUS, GROUP B, CAUSING DISEASES CLASSD SERENA Cheng tus: Acute Current Visit: Yes (6) S/P repeat low transverse SNOMED Code(s): 583649929, 25184616, 777653388, 132013678, 030576814 Code(s): Z98.891 - HISTORY OF UTERINE SCAR FROM PREVIOUS SURGERY Status: Acute Current Visit: Yes - Problem List Review Problem List Initiated/Reviewed/Updated: Yes - My Orders Last 24 Hours: My Active Orders 09/16/20 Lunch Regular Diet [DIET] - Assessment Assessment:: Post op day 2 from repeat - Plan Plan:: She is doing well. Ambulating without difficulty. Discharge to home. Signs and symptoms of depression, mastitis, and normal expectations of lochia discussed. Restrictions and pelvic rest discussed. contol to be discussed at 6 week post visit. Will plan to do 2 week incision check. We will schedule recheck tomorrow for staple removal. Nell Elise MD
--- NOTE | 2020-09-17 12:58 | PCM.DCSUM1 ---
Discharge Summary - Hospital Course Free Text/Narrative:: Patient is 30 yo at 38w6d who came in with right flank pain. UA suspicious for UTI and NST shows cat 1 strip with her stephen every 6-10 minutes. She was kept on the monitor and found to be in labor 2 hours later with cervical change. Choice was given to her to be transported to [place] to attempt or deliver here via . Patient did not have transportation back to [place] so decided to proceed with . Dr. Arguello consulted for repeat that day. Surgery went well. Viable female born, apgars 8 and 9. Post course was uneventful and she desired discharge on post op day 2. Since her and baby were doing well, they were discharged home with follow up within 24 hours for staple removal. - Discharge Data Discharge Date: 09/17/20 Discharge Disposition: Home, Self-Care 01 Condition: Good - Referral to Home Health Primary Care Physician: PCP None - Discharge Diagnosis/Problem(s) (1) History of SNOMED Code(s): 045595530 ICD Code: Z98.891 - HISTORY OF UTERINE SCAR FROM PREVIOUS SURGERY Status: Acute Current Visit: Yes (2) Normal in third trimester SNOMED Code(s): 68960222, 34526528 ICD Code: Z34.93 - ENCNTR FOR SUPRVSN OF NORMAL PREG, UNSP, THIRD TRIMESTER Status: Acute Current Visit: Yes (3) Right flank pain SNOMED Code(s): 817937586 ICD Code: R10.9 - UNSPECIFIED ABDOMINAL PAIN Status: Acute Current Visit: Yes (4) UTI in SNOMED Code(s): 886486880 ICD Code: O23.40 - UNSP INFECTION OF URINARY TRACT IN , UNSP TRIMESTER Status: Acute Current Visit: Yes (5) Positive GBS test SNOMED Code(s): 207281388, 072684993 ICD Code: B95.1 - STREPTOCOCCUS, GROUP B, CAUSING DISEASES CLASSD ELSWHR Status: Acute Current Visit: Yes (6) S/P repeat low transverse SNOMED Code(s): 091941734, 82655087, 711760944, 700367782, 092458985 ICD Code: Z98.891 - HISTORY OF UTERINE SCAR FROM PREVIOUS SURGERY Status: Acute Current Visit: Yes - Patient Summary/Data Consults: Consultations 09/15/20 18:01 Consult to Animal Care Supervisor [CONS] Routine - Discharge Plan *PRESCRIPTION DRUG MONITORING PROGRAM REVIEWED*: Not Applicable *COPY OF PRESCRIPTION DRUG MONITORING REPORT IN PATIENT VASQUEZ: Not Applicable Prescriptions/Med Rec: Ferrous Sulfate 325 mg PO WITHBREAKFAST 30 Days tablet Acetaminophen/oxyCODONE [Percocet 325-5 MG] 1 tab PO Q4H PRN #30 tablet PRN Reason: Pain (Moderate 4-6) Home Medications: Home Meds Pnv No.95/Ferrous Fum/Folic AC [ Vitamin Tablet] 1 each PO DAILY 09/15/20 [History] Acetaminophen [Tylenol] 650 mg PO Q6H PRN tablet 09/17/20 [Rx] Acetaminophen/oxyCODONE [Percocet 325-5 MG] 1 tab PO Q4H PRN #30 tablet 09/17/20 [Rx] Docusate Sodium [Colace] 100 mg PO Q12H PRN cap 09/17/20 [Rx] Ferrous Sulfate 325 mg PO WITHBREAKFAST 30 Days tablet 09/17/20 [Rx] Ibuprofen [Motrin] 800 mg PO Q8H PRN tablet 09/17/20 [Rx] Patient Handouts: Baby Blues, Urinary Tract Infection, Adult, Care After Delivery, Incision Care, Adult, [id number] - Discharge Summary/Plan Comment DC Time >30 min.: No - Patient Data Vitals - Most Recent: Last Vital Signs Temp 98.3 F 09/17/20 08:00 Pulse 73 09/17/20 08:00 Resp 20 09/17/20 08:00 BP 122/66 09/17/20 08:00 Pulse Ox 100 09/17/20 08:00 Weight - Most Recent: 174 lb Med Orders - Current: Current Medications Acetaminophen (Tylenol) 650 mg PO Q6H PRN PRN Reason: Mild Pain (1-3) or Fever Carboprost Tromethamine (Hemabate Ds) 250 mcg IM ONETIME PRN PRN Reason: Bleeding Diphenhydramine HCl (Benadryl) 25 mg IVPUSH Q6H PRN PRN Reason: Itching or Nausea Docusate Sodium (Colace) 100 mg PO Q12H PRN PRN Reason: Constipation Last Admin: 09/17/20 09:03 Dose: 100 mg Documented by: Ephedrine Sulfate (Ephedrine Sulfate) 5 mg IVPUSH SEECOMMENT PRN PRN Reason: Other Ferrous Sulfate (Ferrous Sulfate) 325 mg PO WITHBREAKFAST [facility] Last Admin: 09/17/20 09:02 Dose: 325 mg Documented by: Oxytocin/Sodium Chloride (Pitocin In Ns 30 Unit/500 Ml) 30 unit in 500 mls @ 2 mls/hr IV TITRATE JAYCE; Protocol Last Titration: 09/15/20 19:40 Dose: 0 munits/min, 0 mls/hr Documented by: Lactated Ringer's (Ringers, Lactated) 1,000 mls @ 125 mls/hr IV ASDIRECTED JAYCE Last Admin: 09/16/20 04:05 Dose: 125 mls/hr Documented by: Tranexamic Acid 1,000 mg/ (Sodium Chloride) 110 mls @ 660 mls/hr IV ONETIME PRN PRN Reason: Bleeding Ibuprofen (Motrin) 800 mg PO Q8H PRN PRN Reason: Cramping Last Admin: 09/17/20 09:02 Dose: 800 mg Documented by: Methylergonovine Maleate (Methergine) 0.2 mg IM ONETIME PRN PRN Reason: Excessive Vaginal Bleeding Misoprostol (Cytotec) 800 mcg RECTAL ASDIRECTED PRN PRN Reason: Excessive bleeding Naloxone HCl (Narcan) 0.1 mg IVPUSH SEECOMMENT PRN PRN Reason: Respiratory Depression Ondansetron HCl (Zofran) 4 mg IVPUSH Q4H PRN PRN Reason: Nausea/Vomiting Last Admin: 09/15/20 20:23 Dose: 4 mg Documented by: Oxycodone/Acetaminophen (Percocet 325-5 Mg) 1 tab PO Q4H PRN PRN Reason: Pain (moderate 4-6) Last Admin: 09/17/20 12:11 Dose: 1 tab Documented by: Oxycodone/Acetaminophen (Percocet 325-5 Mg) 2 tab PO Q4H PRN PRN Reason: Pain (moderate 4-6) Last Admin: 09/17/20 03:41 Dose: 2 tab Documented by: Prenat Multivit/[place]/Iron/Folic Ac ( Plus Iron) 1 each PO DAILY [facility] Last Admin: 09/17/20 09:02 Dose: 1 each Documented by: Simethicone (Simethicone) 160 mg PO QID [facility] Last Admin: 09/17/20 12:11 Dose: 160 mg Documented by: Discontinued Medications Citric Acid/Sodium Citrate (Bicitra Solution) 30 ml PO ONETIME ONE Stop: 09/15/20 15:01 Last Admin: 09/15/20 16:07 Dose: 30 ml Documented by: Lactated Ringer's (Ringers, Lactated) 1,000 mls @ 125 mls/hr IV ASDIRECTED [facility] Last Admin: 09/15/20 19:41 Dose: 125 mls/hr Documented by: Lactated Ringer's (Ringers, Lactated) 1,000 mls @ 500 mls/hr IV .BOLUS [facility] Last Admin: 09/15/20 16:00 Dose: 999 mls/hr Documented by: Tranexamic Acid 1,000 mg/ (Sodium Chloride) 110 mls @ 660 mls/hr IV ONETIME PRN PRN Reason: Bleeding Cefazolin Sodium/Dextrose 2 gm (/ Premix) 50 mls @ 100 mls/hr IV ONETIME ONE Stop: 09/15/20 15:29 Last Admin: 09/15/20 16:34 Dose: 100 mls/hr Documented by: Cefazolin Sodium/Dextrose (Ancef 2 Gm/50 Ml) Confirm Administered Dose 50 mls @ as directed .ROUTE .STK-MED ONE Stop: 09/15/20 15:12 Oxytocin/Sodium Chloride (Pitocin In Ns 30 Unit/500 Ml) Confirm Administered Dose 60 unit in 1,000 mls @ as directed .ROUTE .STK-MED ONE Stop: 09/15/20 15:12 Oxytocin/Sodium Chloride (Pitocin In Ns 30 Unit/500 Ml) 30 unit in 500 mls @ as directed IV .STK-MED ONE Stop: 09/16/20 16:33 Ketorolac Tromethamine (Toradol) 15 mg IVPUSH Q6H [facility] Stop: 09/16/20 11:01 Last Admin: 09/16/20 11:13 Dose: 15 mg Documented by: Promethazine HCl (Phenergan) 12.5 mg IM ONETIME ONE Stop: 09/15/20 20:49 Last Admin: 09/15/20 21:09 Dose: 12.5 mg Documented by: Sodium Chloride (Saline Flush) 10 ml FLUSH ASDIRECTED PRN PRN Reason: Keep Vein Open
[2020-09-17] MEDS ORDERED: Dexamethasone 4 MG/ML SDV IV ONE (14:46)
[2020-09-17] MEDS ORDERED: Sodium Bicarbonate 4.2% 2.5 MEQ/5 ML SDV ONE (14:46)
[2020-09-17] MEDS ORDERED: ePHEDrine 50 MG/ML SDV IV ONE (14:46)
[2020-09-17] MEDS ORDERED: Morphine PF 1 MG/ML Amp ITHECAL ONE (14:46)
[2020-09-17] MEDS ORDERED: Ondansetron 4 MG/2 ML SDV IV ONE (14:46)
[2020-09-17] MEDS ORDERED: Lactated Ringers 1,000 ML IV ONE (14:46)
[2020-09-17] MEDS ORDERED: Ketorolac 30 MG/ML SDV IVPUSH ONE (14:46)
--- NOTE | 2020-09-17 23:46 | CONS ---
SERVICE DATE: 09/15/2020 REASON FOR CONSULTATION: section due to presenting in active labor, and the patient has had a prior section. HISTORY OF PRESENT ILLNESS: The patient is a 30-year-old 4, para 3-0-0- 3 at 38-6/7 weeks' gestation. She has a history of 2 prior vaginal deliveries and then a primary section because of distress. There were plans for her to go to [place] for a trial of labor after . However, she presents [facility] in active labor and reports that she does not want to be transferred to [place] because of family difficulties with transportation, and even though she could be sent there via ambulance she does not want to be because getting transportation back home after discharge will be quite difficult, and she does not feel that she wants to consider that. She would rather proceed with repeat section at our facility. History: Notes from [facility] as well as Dr. Elise's notes here in the hospital are available for review. PAST MEDICAL HISTORY: Tension headaches. SURGICAL HISTORY: section x1; vaginal dilatation, curettage, and hysteroscopy; and curetting of the cervix with scope in the past. FAMILY HISTORY: Sister with thyroid disease and grandmother with diabetes and heart disease, otherwise, essentially negative. SOCIAL HISTORY: The patient is and living in [facility] with her 3 children, and working at the [employer]. They have a couple of dogs. Her smokes outside. OBSTETRICAL HISTORY: All deliveries were full-term and around 39 weeks' gestation. Her 2 daughters were born by vaginal delivery, 1 of them 3500 g, the other 3000 g, and her son born by section was 3700 g, but it is noted that was because of intolerance of labor. MEDICATIONS: Prior to hospitalization; vitamins, aspirin, and Tylenol as needed. ALLERGIES: No known drug allergies. REVIEW OF SYSTEMS: Unchanged from Dr. Elise's admission history. PHYSICAL EXAMINATION: Vital Signs: Temperature is 98.1, blood pressure 128/78, and pulse of 94. HEENT: Grossly unremarkable. Heart: Regular without murmur. Lungs: Clear to auscultation bilaterally. Abdomen/Genitourinary: Gravid, soft, and nontender. Surgical scar is well- healed. Stress test shows a heart rate of 145 beats per minute at baseline, moderate [id number] variability. Good accelerations. The patient was stephen every few minutes. Cervical exam on admission was about 1 cm, and at last check she was at 2.5 cm. Extremities: Trace edema. No erythema or tenderness noted. LABORATORY DATA: Hemoglobin 14.8 and platelets 196. COVID test was negative. ASSESSMENT: 1. A 38-6/7th weeks' intrauterine . 2. 4, para 3-0-0-3. 3. History of 1 section. 4. The patient requesting elective repeat section rather than transfer to a facility that can perform vaginal after . PLAN: Discussed with the patient indications risks, benefits, and alternatives of primary low transverse section, further outlined in the operative report. She had opportunity to have her questions answered and would like to proceed with surgery as soon as her gets back from getting the children home from school. I did discuss with the patient that vaginal after , would be highly recommended in her case in order to speed recovery time, and given the fact that she has had 2 successful vaginal births. I did discuss with her option of being transferred via ambulance to [place] and that the Social Work Team could help arrange transportation for her and the baby to return home. She is declining at this time and requesting to proceed with surgery. We will prep the operating room and get her down there as soon as we are ready and her has returned back to the hospital. If she continues to progress more rapidly through labor or the baby develops any distress or there are any signs or symptoms of uterine rupture, we would proceed with the emergency section even if her was not present. The patient's questions have been answered. Thank you, Dr. Elise, for inviting me to participate in your patient's care. [facility] /[id number]
== END 2020-09-17 16:55 | disposition home or self-care (01) | DRG 787 ==
LOC: DL.OBCHECK 11:02 → DL.MS 14:53 → UNDOADMOB 14:54 → DL.MS 14:54 → OBSVTOIN 17:03
PROVIDERS: ADMIT Family Medicine; ATTEND Family Medicine
PROC: 10D00Z1 Extraction of Products of Conception, Low, Open Approach (ICD-10-PCS; principal; 2020-09-15)
DX: O34.211 Maternal care for low transverse scar from previous cesarean delivery (principal); O23.43 Unspecified infection of urinary tract in pregnancy, third trimester; D62 Acute posthemorrhagic anemia; Z37.0 Single live birth; O99.824 Streptococcus B carrier state complicating childbirth; O99.02 Anemia complicating childbirth; Z20.822 Contact with and (suspected) exposure to COVID-19; Z28.21 Immunization not carried out because of patient refusal; Z3A.38 38 weeks gestation of pregnancy
CPT/HCPCS: 01961; 36415; 51702; 59025; 85025; 85027; 86850; 86900; 86901; A9270-GY; J0690; J1100; J1885; J2274; J2405; J2550; J2590; J7120; U0002